=== PATIENT | female | born 1965 | race Caucasian/White ===

== ENCOUNTER → 2021-04-10 15:16 | Outpatient (BNVA) | payer OTHER, SELFPAY | PROVIDERS: Visit Provider Nurse Practitioner Family | DX: Z20.822 Contact with and (suspected) exposure to COVID-19 (principal) | CPT/HCPCS: 87635 ==

== ENCOUNTER 2021-05-28 11:34 | Outpatient (CLI) | payer SELFPAY ==
--- NOTE | 2021-05-28 11:52 | XR_ITS ---
WS: [id number] Chest 2 views, 05/28/2021 Clinical Data: CHEST DISCOMFORT/POST COVID 19 INFECTION Comparison: None. Findings: No nodules, masses or effusions are seen. The heart is normal. The pulmonary vascularity is not increased. No pneumonia or pneumothorax is seen. There are calcified occasions in the right hilu m and right lower lobe. XR/XR chest 2V* [id number] Impression: Old granulomatous disease.
== END 2021-05-28 11:35 | disposition home or self-care (01) ==
LOC: RAD 11:39
PROVIDERS: PCP Internal Medicine; Visit Provider Nurse Practitioner Family
DX: R07.89 Other chest pain (principal); U07.1 COVID-19; D71 Functional disorders of polymorphonuclear neutrophils
CPT/HCPCS: 71046

== ENCOUNTER 2024-12-26 09:03 | Outpatient (CLI) | payer OTHER, SELFPAY ==
--- NOTE | 2024-12-26 09:07 | MM_ITS ---
WS: [id number] BILATERAL 3D TOMOSYNTHESIS DIGITAL SCREENING MAMMOGRAPHY WITH CAD CLINICAL INFORMATION: SCREENING HISTORY: Screening mammogram. No current complaints. COMPARISON: New baseline TECHNIQUE: Bilateral CC and MLO views. FINDINGS: Scattered fibroglandular densities bilaterally. A few incidental punctate and lucent centered calcifications. Nodular asymmetric density posterior depth LEFT breast. Additional asymmetric density inner LEFT breast measuring 1.3 cm. Recommend LEFT breast diagnostic mammography and ultrasound if persistent. RIGHT breast is unremarkable. MM/MM [facility] tomosynthesis [id number] IMPRESSION: DENSITY: There are scattered areas of fibroglandular density. BI-RADS: 0- Incomplete: Need additional imaging evaluation. FOLLOW UP: Need Additional Imaging Recommend LEFT breast diagnostic mammography and ultrasound if persistent.
== END 2024-12-26 09:04 | disposition home or self-care (01) ==
LOC: RAD 09:05
PROVIDERS: PCP Internal Medicine; Visit Provider Family Medicine
DX: Z12.31 Encounter for screening mammogram for malignant neoplasm of breast (principal); R92.323 Mammographic fibroglandular density, bilateral breasts; R92.1 Mammographic calcification found on diagnostic imaging of breast; N63.20 Unspecified lump in the left breast, unspecified quadrant
CPT/HCPCS: 77063; 77067

== ENCOUNTER 2025-01-18 13:15 | Outpatient (CLI) | payer OTHER, SELFPAY ==
--- NOTE | 2025-01-18 | MM_ITS ---
WS: [id number] LEFT 3D TOMOSYNTHESIS DIGITAL MAMMOGRAPHY WITH CAD CLINICAL INFORMATION: ABNORMAL MAMMOGRAM HISTORY: Additional views COMPARISON: 12/26/2024 TECHNIQUE: 3 views of the left breast were obtained. FINDINGS: Scattered fibroglandular densities of the left breast. Previously described asymmetric density inner LEFT breast partially compresses out on the spot compression views. Ultrasound is pending. ULTRASOUND BREAST LEFT TECHNIQUE: Ultrasound left breast focused area of concern. CLINICAL INFORMATION: ABNORMAL MAMMOGRAM FINDINGS: Ultrasound LEFT breast at the 8 to 12 o'clock position. Dense underlying parenchymal tissue. No cystic or solid lesions. No suspicious lesions to target for biopsy. MM/MM diag LT tomosynthesis [id number] IMPRESSION: DENSITY: There are scattered areas of fibroglandular density. BI-RADS: 1 - Negative. FOLLOW UP: 1 Year Follow-up Recommend return to annual screening mammography.
--- NOTE | 2025-01-18 13:19 | US_ITS ---
WS: [id number] LEFT 3D TOMOSYNTHESIS DIGITAL MAMMOGRAPHY WITH CAD CLINICAL INFORMATION: ABNORMAL MAMMOGRAM HISTORY: Additional views COMPARISON: 12/26/2024 TECHNIQUE: 3 views of the left breast were obtained. FINDINGS: Scattered fibroglandular densities of the left breast. Previously described asymmetric density inner LEFT breast partially compresses out on the spot compression views. Ultrasound is pending. ULTRASOUND BREAST LEFT TECHNIQUE: Ultrasound left breast focused area of concern. CLINICAL INFORMATION: ABNORMAL MAMMOGRAM FINDINGS: Ultrasound LEFT breast at the 8 to 12 o'clock position. Dense underlying parenchymal tissue. No cystic or solid lesions. No suspicious lesions to target for biopsy. US/US breast LT limited* [id number] IMPRESSION: DENSITY: There are scattered areas of fibroglandular density. BI-RADS: 1 - Negative. FOLLOW UP: 1 Year Follow-up Recommend return to annual screening mammography.
== END 2025-01-18 13:16 | disposition home or self-care (01) ==
PROVIDERS: PCP Internal Medicine; Visit Provider Family Medicine
DX: R92.8 Other abnormal and inconclusive findings on diagnostic imaging of breast (principal); R92.322 Mammographic fibroglandular density, left breast
CPT/HCPCS: 76642; 77061; G0279

== ENCOUNTER 2025-08-16 09:09 | Outpatient (CLI) | payer BC, MEDICAID, SELFPAY ==
--- NOTE | 2025-08-16 09:16 | USR_ITS ---
PROCEDURE INFORMATION: Exam: US Duplex Artery or Vein of the Abdominal and/or Reproductive Organs, Limited Ovaries Exam date and time: 08/16/2025 9:27 AM Age: 59 years old Clinical indication: Pelvic pain; Additional info: Abdominal bloating/pelvic perineal pain bilateral TECHNIQUE: Imaging protocol: Real-time duplex ultrasound scan of the arterial or venous flow with bryant scale, color Doppler flow and spectral waveform analysis with image documentation. Limited duplex exam focused on the ovaries. Duplex exam was performed to evaluate for torsion and other vascular conditions. COMPARISON: No relevant prior studies available. FINDINGS: Right ovary/adnexa: Large cystic right adnexal lesion, with the right ovary not seen separately from this. Left ovary/adnexa: Low resistance arterial Doppler waveform demonstrated in the ovary. No findings to suggest ovarian torsion at this time. PROCEDURE INFORMATION: Exam: US Pelvis Transabdominal, Complete, and US Pelvis Transvaginal, Non-obstetric Exam date and time: 08/16/2025 9:27 AM Age: 59 years old Clinical indication: Pelvic pain; Additional info: Abdominal bloating/pelvic perineal pain bilateral TECHNIQUE: Imaging protocol: Real-time complete transabdominal and transvaginal pelvic ultrasound (non-obstetric) with image documentation. Transvaginal imaging was used for better evaluation of the endometrium, adnexa, and/or cervix. COMPARISON: No relevant prior studies available. FINDINGS: Uterus: Anteverted uterus. No fibroids identified. Endometrium measures about 4 mm in thickness, within normal limits. No increased endometrial vascularity demonstrated. Cervix appears unremarkable. Right ovary/adnexa: Very large primarily cystic right adnexal lesion measuring approximately 14.9 x 9.8 x 6.4 cm. This lesion contains thick internal septations measuring up to 5 mm in thickness, with some of the septations demonstrating internal vascularity on color Doppler imaging. Some additional low-level internal echoes within this lesion. The right ovary is not seen separately from this lesion. Left ovary/adnexa: Left ovary measures 3.2 x 1.8 x 2.7 cm, volume 8.3 cc. Unremarkable size and appearance. Ovarian blood flow demonstrated. Intraperitoneal space: No significant free fluid seen. Urinary bladder: Grossly unremarkable. US/US pelv w/transvag [id number] IMPRESSION: 1. Unremarkable left ovarian blood flow with no findings to suggest ovarian torsion at this time. 2. Large cystic right adnexal lesion, with the right ovary not seen separately from this. IMPRESSION: 1. Large primarily cystic right adnexal lesion measuring up to 14.9 cm containing thick internal septations, with some of the septations demonstrating internal vascularity. The right ovary is not seen separately from this, and a cystic right ovarian neoplasm would be high on the differential. Recommend color straining bag washer consultation. Contrast-enhanced pelvic MRI could also be obtained for more complete evaluation, if clinically warranted. 2. Unremarkable appearance of the uterus, endometrium, and left ovary.
== END 2025-08-16 09:10 | disposition home or self-care (01) ==
LOC: RAD 09:11
PROVIDERS: PCP Nurse Practitioner Family; Visit Provider Nurse Practitioner Family
DX: R14.0 Abdominal distension (gaseous) (principal); R10.23 Pelvic and perineal pain bilateral; D39.11 Neoplasm of uncertain behavior of right ovary; N83.291 Other ovarian cyst, right side; N85.4 Malposition of uterus
CPT/HCPCS: 76830; 76856